=== PATIENT | female | born 1950 | race Caucasian/White ===

== ENCOUNTER → 2019-03-30 | Outpatient (CLI) | payer MEDICARE, OTHER ==
--- NOTE | 2019-03-30 10:06 | US ---
EXAMINATION TYPE: US gallbladder DATE OF EXAM: 03/30/2019 COMPARISON: NONE CLINICAL HISTORY: 69-year-old female R10.9 ABD PAIN. Intermittent RUQ pain x 1 year TECHNIQUE: Multiple sonographic images of the right upper quadrant are obtained. FINDINGS: EXAM MEASUREMENTS: Liver Length: 11.7 cm Gallbladder Wall: 0.2 cm CBD: 0.4 cm Right Kidney: 9.2 x 4.3 x 4.1 cm Pancreas: wnl Liver: wnl Gallbladder: wnl with a junctional fold noted Evidence for sonographic Ace's sign: no CBD: wnl Right Kidney: No hydronephrosis. 3.0 x 3.0 x 2.7cm exophytic cystic area inferior pole. Internal low -level echoes are demonstrated. IMPRESSION: 1. A 3.0 cm cystic lesion lower pole right kidney. Internal echoes suspected to represent artifact or debris. Six-month follow-up renal ultrasound can reassess. 2. Otherwise, no specific sonographic abnormality of the right upper quadrant.
--- NOTE | 2019-03-30 10:15 | XR ---
EXAMINATION TYPE: XR chest 2V DATE OF EXAM: 03/30/2019 COMPARISON: NONE TECHNIQUE: PA and lateral views submitted. HISTORY: Physical exam FINDINGS: The lungs are clear and there is no pneumothorax, pleural effusion, or focal pneumonia. Biapical pl eural thickening. Biapical pleural thickening. Hyperinflation suggests COPD. IMPRESSION: 1. No acute process. Correlate for COPD.
== END | disposition home or self-care (01) ==
LOC: RADUSWWP 07:19
PROVIDERS: ATTEND Family Medicine
DX: N28.1 Cyst of kidney, acquired (principal); F17.200 Nicotine dependence, unspecified, uncomplicated
CPT/HCPCS: 71046; 76705

== ENCOUNTER 2019-04-18 14:40 | Emergency (ER) | payer MEDICARE, OTHER ==
[2019-04-18 13:45] LABS: Blood Urea Nitrogen 14 mg/dL (7-17)
[2019-04-18 14:49] VITALS: TEMP 97.9
[2019-04-18] MEDS ORDERED: FAMOTIDINE 20 MG/2 ML VIAL IV STA (14:49)
[2019-04-18] MEDS ORDERED: diphenhydrAMINE 50 MG/ML 1 ML VIAL IVP STA (14:49)
[2019-04-18] MEDS ORDERED: methylPREDNISolone SOD SUCCI 125 MG/2 ML VIAL IV STA (14:49)
[2019-04-18] MEDS ORDERED: SODIUM CHLORIDE 0.9% 500 ML 500 ML IV STA (14:49)
--- NOTE | 2019-04-18 14:51 | CT ---
EXAMINATION TYPE: CT chest w con DATE OF EXAM: 04/18/2019 COMPARISON: Chest x-ray March 30, 2019 HISTORY: Abn CXR, COPD CT DLP: 394 mGycm. Automated Exposure Control for Dose Reduction was Utilized. TECHNIQUE: CT scan of the thorax is performed following with IV Contrast, patient injected with 100 mL of Isovue 300. FINDINGS: LUNGS: Moderate right greater than left biapical pleural/parenchymal scarring. No pleural effusion or pneumothorax is evident bilaterally. No suspicious consolidation. No suspicious nodules or masses MEDIASTINUM: There are no greater than 1 cm hilar or mediastinal lymph nodes. No cardiomegaly or pe ricardial effusion is seen. Ascending aorta measures up to 3.8 cm in diameter axial image 26. Descend ing aorta measures 3.2 cm in diameter same image. No significant coronary artery calcification. OTHER: Rim calcified bilateral breast implants are noted. There is 6.0 cm exophytic simple appearing cyst anteriorly upper to mid pole level left kidney. Osseous structures are demineralized. IMPRESSION: Moderate biapical pleural/parenchymal scarring, no acute pulmonary process. Mild aneurysm of thoracic aorta noted.
--- NOTE | 2019-04-18 15:25 | ED ---
General Adult HPI - General Chief complaint: Allergic Reaction Stated complaint: Chest tightness Time Seen by Provider: 04/18/19 14:44 Source: patient, RN notes reviewed, old records reviewed Mode of arrival: ambulatory Limitations: no limitations - History of Present Illness Initial comments: 69 -year-old female presenting with reaction to contrast from chest CT. Patient was brought over from computed tomography scan with complaints of mild dyspnea, chest tightness, and right hand pain and contracture after injection of iodine containing contrast. Patient has no known history of iodine ALLERGY although she has not received contrast CT in the past. Symptoms have nearly completely resolved with time my evaluation. She has some mild chest tightness associated with this. She has a history of COPD. No significant dyspnea. Hand pain and contracture is resolved. - Related Data Home Medications Medication Instructions Recorded Confirmed Calcium Carbonate [Calcium] 600 mg PO DAILY 04/18/19 04/18/19 Cyanocobalamin [Vitamin B-12] 500 mcg PO DAILY 04/18/19 04/18/19 Multivitamins, Thera [Multivitamin 1 tab PO DAILY 04/18/19 04/18/19 (formulary)] Venlafaxine HCl [Effexor] 75 mg PO BID 04/18/19 04/18/19 Allergies Allergy/AdvReac Type Severity Reaction Status Date / Time Latex, Natural Rubber Allergy Rash/Hives Verified 04/18/19 10:39 Iodinated Contrast- Oral and AdvReac Chest Pain Verified 04/18/19 16:39 IV Dye Review of Systems ROS Statement: Those systems with pertinent positive or pertinent negative responses have been documented in the HPI. ROS Other: All systems not noted in ROS Statement are negative. Past Medical History Past Medical History: COPD Additional Past Medical History / Comment(s): positive cologard History of Any Multi-Drug Resistant Organisms: None Reported Past Surgical History: Hysterectomy Additional Past Surgical History / Comment(s): growth removed from back of throat Past Anesthesia/Blood Transfusion Reactions: No Reported Reaction Past Psychological History: Anxiety, Depression Smoking Status: Current every day smoker - Past Family History Mother Family Medical History: No Reported History General Exam Limitations: no limitations General appearance: alert, in no apparent distress Head exam: Present: atraumatic, normocephalic Eye exam: Present: normal appearance, PERRL, EOMI ENT exam: Present: normal exam Neck exam: Present: normal inspection. Absent: tenderness, meningismus Respiratory exam: Present: normal lung sounds bilaterally. Absent: respiratory distress, wheezes, rales Cardiovascular Exam: Present: regular rate, normal rhythm GI/Abdominal exam: Present: soft. Absent: distended, tenderness, guarding Extremities exam: Present: normal inspection, normal capillary refill. Absent: pedal edema Back exam: Present: normal inspection, full ROM Neurological exam: Present: alert, oriented X3, CN II-XII intact. Absent: motor sensory deficit Psychiatric exam: Present: normal affect, normal mood Skin exam: Present: warm, dry, intact. Absent: cyanosis, diaphoretic Course Vital Signs 04/18/19 04/18/19 04/18/19 14:46 14:49 15:29 Temperature 97.9 F Pulse Rate 79 77 Respiratory 16 16 16 Rate Blood Pressure 142/75 144/77 O2 Sat by Pulse 99 99 Oximetry 04/18/19 16:14 Temperature Pulse Rate 57 L Respiratory 18 Rate Blood Pressure 148/78 O2 Sat by Pulse 97 Oximetry Medical Decision Making - Medical Decision Making 69 -year-old female presenting for ALLERGIC reaction to contrast dye. Patient has stable vitals, clear lungs bilaterally. She is well-appearing at the time my evaluation, symptoms have nearly resolved prior to treatment. She is given steroids, Pepcid, and Benadryl. She has normal CBC, normal electrolytes. On reevaluation she is feeling significantly better with no complaints. Iodine is added to her list of ALLERGIES. Patient had CT performed prior to arrival in the emergency department, these results are reviewed, patient has atelectasis and scarring. She has finding of 3.8 cm thoracic aneurysm. She is informed of this and will follow up with her primary care physician regarding this aneurysm - Lab Data Result diagrams: 04/18/19 15:10 04/18/19 15:10 Lab Results 04/18/19 04/18/19 04/18/19 Range/Units 13:20 15:10 15:10 WBC 8.0 (3.8-10.6) k/uL RBC 3.86 (3.80-5.40) m/uL Hgb 12.0 (11.4-16.0) gm/dL Hct 36.1 (34.0-46.0) % MCV 93.5 (80.0-100.0) fL MCH 31.1 (25.0-35.0) pg MCHC 33.2 (31.0-37.0) g/dL RDW 12.2 (11.5-15.5) % Plt Count 247 (150-450) k/uL Neutrophils % 70 % Lymphocytes % 21 % Monocytes % 5 % Eosinophils % 1 % Basophils % 0 % Neutrophils # 5.5 (1.3-7.7) k/uL Lymphocytes # 1.7 (1.0-4.8) k/uL Monocytes # 0.4 (0-1.0) k/uL Eosinophils # 0.1 (0-0.7) k/uL Basophils # 0.0 (0-0.2) k/uL Sodium 136 L (137-145) mmol/L Potassium 3.8 (3.5-5.1) mmol/L Chloride 104 (98-107) mmol/L Carbon Dioxide 24 (22-30) mmol/L Anion Gap 8 mmol/L BUN 14 13 (7-17) mg/dL Creatinine 0.67 0.66 (0.52-1.04) mg/dL Est GFR (CKD-EPI)AfAm >90 >90 (>60 ml/min/1.73 sqM) Est GFR (CKD-EPI)NonAf >90 >90 (>60 ml/min/1.73 sqM) Glucose 85 (74-99) mg/dL Calcium 9.4 (8.4-10.2) mg/dL Magnesium 2.1 (1.6-2.3) mg/dL Total Bilirubin 0.4 (0.2-1.3) mg/dL AST 22 (14-36) U/L ALT 19 (9-52) U/L Alkaline Phosphatase 91 (38-126) U/L Total Protein 6.5 (6.3-8.2) g/dL Albumin 4.1 (3.5-5.0) g/dL Disposition Clinical Impression: Adverse reaction to drug, Thoracic aortic aneurysm Disposition: HOME SELF-CARE Condition: Good Instructions (If sedation given, give patient instructions): Anaphylaxis (ED) Additional Instructions: Please follow up with her primary care physician regarding CT finding of 3.8 cm thoracic aneurysm. Is patient prescribed a controlled substance at d/c from ED?: No Referrals: Max Garcia MD [Primary Care Provider] - 1-2 days Time of Disposition: 16:49
[2019-04-18 15:27] LABS: ALT 19 U/L (9-52); AST 22 U/L (14-36); Albumin 4.1 g/dL (3.5-5.0); Alkaline Phosphatase 91 U/L (38-126); Anion Gap 8 mmol/L; Basophils % (A) 0 %; Blood Urea Nitrogen 13 mg/dL (7-17); Calcium 9.4 mg/dL (8.4-10.2); Carbon Dioxide 24 mmol/L (22-30); Chloride 104 mmol/L (98-107); Eosinophils # (A) 0.1 k/uL (0-0.7); Eosinophils % (A) 1 %; Glucose 85 mg/dL (74-99); HCT 36.1 % (34.0-46.0); Lymphocytes # (A) 1.7 k/uL (1.0-4.8); Lymphocytes % (A) 21 %; MCH 31.1 pg (25.0-35.0); MCHC 33.2 g/dL (31.0-37.0); MCV 93.5 fL (80.0-100.0); Magnesium 2.1 mg/dL (1.6-2.3); Mean Platelet Volume 7.7; Monocytes # (A) 0.4 k/uL (0-1.0); Monocytes % (A) 5 %; Neutrophils # (A) 5.5 k/uL (1.3-7.7); Neutrophils % (A) 70 %; Platelet Count 247 k/uL (150-450); Potassium 3.8 mmol/L (3.5-5.1); RBC 3.86 m/uL (3.80-5.40); RDW 12.2 % (11.5-15.5); Sodium 136 mmol/L (137-145); Total Bilirubin 0.4 mg/dL (0.2-1.3); Total Protein 6.5 g/dL (6.3-8.2)
[2019-04-18 16:15] VITALS: BP 148/78; PULSE 57; RESP 18
== END 2019-04-18 16:54 | disposition home or self-care (01) ==
LOC: EC 14:40
DX: I71.2 Thoracic aortic aneurysm, without rupture (principal); T50.8X5A Adverse effect of diagnostic agents, initial encounter; J98.11 Atelectasis; J98.4 Other disorders of lung; F41.9 Anxiety disorder, unspecified; F32.9 Major depressive disorder, single episode, unspecified; F17.200 Nicotine dependence, unspecified, uncomplicated; Z79.899 Other long term (current) drug therapy; Z91.040 Latex allergy status; Z91.048 Other nonmedicinal substance allergy status; Z91.041 Radiographic dye allergy status; Z87.09 Personal history of other diseases of the respiratory system
CPT/HCPCS: 36415 ×2; 80053; 82565; 83735; 84520; 85025; 71260; 99284; 96374; 96375 ×2; 96361; J1200; J2930; Q9967

== ENCOUNTER 2019-06-13 08:32 | Day surgery (SDC) | payer MEDICARE, OTHER ==
[2019-06-09 14:55] VITALS: BMI 21.1
[~2019-06-13 08:32] MED LIST: LACTATED RINGERS 1,000 ML IV SCH; LIDOCAINE 1% INJ 10MG/ML (20 ML MDV) ONE; PROPOFOL 10 MG/ML 20 ML VIAL IV ONE
[2019-06-13 08:54] VITALS: TEMP 97
[2019-06-13] MEDS ORDERED: LIDOCAINE 1% 20 ML VIAL (10MG/ML) FOR IV START INTRADERMA ONE (08:55)
--- NOTE | 2019-06-13 09:26 | P.GSHP ---
History of Present Illness H&P Date: 06/13/19 Chief Complaint: Screening colonoscopy This is a 69-year-old female who presents today for screening colonoscopy. Patient denies any significant GI complaints. Past Medical History Past Medical History: COPD Additional Past Medical History / Comment(s): positive cologard,thorasic aneurysm,leaking valve History of Any Multi-Drug Resistant Organisms: None Reported Past Surgical History: Hysterectomy Additional Past Surgical History / Comment(s): growth removed from back of throat Past Anesthesia/Blood Transfusion Reactions: No Reported Reaction Smoking Status: Current every day smoker - Past Family History Mother Family Medical History: No Reported History Medications and Allergies Home Medications Medication Instructions Recorded Confirmed Type Calcium Carbonate [Calcium] 600 mg PO DAILY 04/18/19 06/13/19 History Cyanocobalamin [Vitamin B-12] 500 mcg PO DAILY 04/18/19 06/13/19 History Multivitamins, Thera [Multivitamin 1 tab PO DAILY 04/18/19 06/13/19 History (formulary)] Venlafaxine HCl [Effexor] 75 mg PO BID 04/18/19 06/13/19 History Allergies Allergy/AdvReac Type Severity Reaction Status Date / Time Latex, Natural Rubber Allergy Rash/Hives Verified 06/13/19 08:43 Iodinated Contrast- Oral and AdvReac severe Verified 06/13/19 08:43 IV Dye muscle retraction and stiffness in arm of injection Surgical - Exam Vital Signs Temp Pulse Resp BP Pulse Ox 97.0 F L 103 H 18 128/86 97 06/13/19 08:53 06/13/19 08:53 06/13/19 08:53 06/13/19 08:53 06/13/19 08:53 - General well developed, well nourished, no distress - Eyes PERRL - ENT normal pinna - Neck no masses - Respiratory normal expansion - Cardiovascular Rhythm: regular - Abdomen Abdomen: soft, non tender Assessment and Plan Assessment: We'll perform screening colonoscopy.
--- NOTE | 2019-06-13 09:46 | P.OP ---
Date of Procedure: 06/13/19 Preoperative Diagnosis: Screening colonoscopy Postoperative Diagnosis: Rectal polyp Diverticulosis Procedure(s) Performed: Colonoscopy Anesthesia: MAC Surgeon: Amish Mclain Pathology: other (Rectal polyp) Condition: stable Disposition: PACU Description of Procedure: The patient's placed on the endoscopy table in the lateral position. She received IV sedation. Digital rectal exam was performed which revealed no abnormalities. The colonoscope was then placed patient anus. In the rectum there was a large peduncular polyp. This is removed with the snare. The scope was then placed into the sigmoid colon and there was extensive diverticular changes. There was a very sharp angle in the sigmoid colon. The scope could not be maneuvered around this band in the colon. This point the scope was withdrawn. There was sigmoid diverticulosis. The rectal biopsy site was examined. There is no evidence of any bleeding. The scope was withdrawn for patient. The patient will be scheduled for outpatient barium enema due to her rectal polypectomy..
[2019-06-13 10:42] VITALS: BP 118/76; PULSE 70; RESP 18
== END 2019-06-13 10:15 | disposition home or self-care (01) ==
LOC: ORWHC2ENDO 08:32
PROVIDERS: ATTEND Surgery
DX: Z12.11 Encounter for screening for malignant neoplasm of colon (principal); D12.8 Benign neoplasm of rectum; K57.30 Diverticulosis of large intestine without perforation or abscess without bleeding; J44.9 Chronic obstructive pulmonary disease, unspecified; I71.2 Thoracic aortic aneurysm, without rupture; N18.9 Chronic kidney disease, unspecified; I38 Endocarditis, valve unspecified; F17.200 Nicotine dependence, unspecified, uncomplicated; Z79.899 Other long term (current) drug therapy; Z91.041 Radiographic dye allergy status; Z91.040 Latex allergy status
CPT/HCPCS: 88305; 45385; J2001; J2704

== ENCOUNTER → 2019-08-31 | Outpatient (CLI) | payer MEDICARE, OTHER ==
[2019-08-31 12:12] VITALS: BP 146/79; PULSE 71; RESP 16; TEMP 98.1; BMI 21.8
--- NOTE | 2019-08-31 12:49 | P.GSHP ---
History of Present Illness H&P Date: 08/31/19 Chief Complaint: possible implant leak The patient is a 69 year old white female with a recent CT of the chest revealing calcified changes bilaterally around breast implants. She has not had any mammograms for many years. She had been followed with breast ultrasound in [place] in the past. She is here today because she is concerned she may have leakage of the implants and she wants to how to evaluate her breasts. She does not feel any lumps or masses in her breasts. She states that the implants feels softer than they were in the past. A silicone implants and she has had them for 38 years. She has never had a problem that she knows of with the implants. The patient in the past has not accepted a mammogram she is concerned that they will cause the implants are ruptured. Family History: no history of cancer Hormonal History: menarche: 16 breast fed: no, age at first: 27 menopause: hysterectomy at 37, no cancer, left ovaries BCP: 2 years hormones: none Past Surgical History: 1. hysterectomy 2. cyst in throat Medical History: 1. High cholesterol 2. Thoracic aneurysm 3. COPD 4.cyst on kidney 5. Poor dentition Social History: smoke: 6/day, for 47 eyrs alcohol: none drugs: none - Constitutional Constitutional: Reports sweats - EENT Eyes: denies blurred vision, denies pain Ears: deny: decreased hearing, tinnitus Ears, nose, mouth and throat: Denies headache, Denies sore throat - Breasts Breasts: bilateral: as per HPI - Cardiovascular Cardiovascular: Denies chest pain, Denies shortness of breath - Respiratory Comment: smoker, COPD - Gastrointestinal Gastrointestinal: Denies abdominal pain, Denies diarrhea, Denies nausea, Denies vomiting - Genitourinary (Female) Genitourinary: Denies dysuria, Denies hematuria - Menstruation Menstruation: Reports post hysterectomy - Musculoskeletal Comment: arthritis Musculoskeletal: Reports myalgias - Integumentary Integumentary: Reports rash, Denies pruritus - Neurological Neurological: Denies numbness, Denies weakness - Psychiatric Psychiatric: Reports anxiety, Reports depression - Endocrine Endocrine: Reports fatigue, Denies weight change - Hematologic/Lymphatic Comment: bleeds easily - Allergic/Immunologic Allergic/Immunologic: Reports seasonal allergies Past Medical History Past Medical History: COPD Additional Past Medical History / Comment(s): positive cologard,thorasic aneurysm,leaking valve History of Any Multi-Drug Resistant Organisms: None Reported Past Surgical History: Hysterectomy Additional Past Surgical History / Comment(s): growth removed from back of throat Past Anesthesia/Blood Transfusion Reactions: No Reported Reaction Past Psychological History: Anxiety, Depression Smoking Status: Current every day smoker Past Alcohol Use History: Rare Additional Past Alcohol Use History / Comment(s): 6 cigs/day since teens Past Drug Use History: None Reported - Past Family History Mother Family Medical History: No Reported History Medications and Allergies Home Medications Medication Instructions Recorded Confirmed Type Calcium Carbonate [Calcium] 600 mg PO DAILY 04/18/19 08/31/19 History Cyanocobalamin [Vitamin B-12] 500 mcg PO DAILY 04/18/19 06/13/19 History Multivitamins, Thera [Multivitamin 1 tab PO DAILY 04/18/19 08/31/19 History (formulary)] Venlafaxine HCl [Effexor] 75 mg PO BID 04/18/19 08/31/19 History Allergies Allergy/AdvReac Type Severity Reaction Status Date / Time Latex, Natural Rubber Allergy Rash/Hives Verified 08/31/19 12:14 Iodinated Contrast Media AdvReac severe Verified 08/31/19 12:14 [Iodinated Contrast- Oral muscle and IV Dye] retraction and stiffness in arm of injection Surgical - Exam Vital Signs Temp Pulse Resp BP Pulse Ox 98.1 F 71 16 146/79 98 08/31/19 12:03 08/31/19 12:03 08/31/19 12:03 08/31/19 12:03 08/31/19 12:03 BMI 21.8 - General well developed, well nourished - Eyes normal ocular movement - ENT no hearing loss, no congestion - Neck no masses, trachea midline - Respiratory normal respiratory effort, clear to auscultation - Cardiovascular Rhythm: regular Heart Sounds: normal: S1, S2 - Abdomen Abdomen: soft, non tender, no guarding, no rigid, no rebound - Integumentary rash left flank - Neurologic no disoriented, no combative - Musculoskeletal normal gait, normal posture - Psychiatric oriented to time, oriented to person, oriented to place, speech is normal, memory intact breast exam: right breast: multipositional exam breast implant in place no dominant masses or nodules of concern Right axilla: No adenopathy of concern Left breast: Multi-positional exam breast implant in place, circumareolar incision, no dominant masses or nodules of concern Left axilla: No adenopathy of concern Results Computed tomography scan and chest x-ray results reviewed Assessment and Plan Assessment: Impression: 1. Thoracic aortic aneurysm 2. Bilateral breast implants with some calcification around them 3. COPD 4. Nicotine dependence 5. Anxiety/depression 6. Hyperlipidemia 7. Fibrocystic breast changes 8. Implants believed to be silicone and patient wants to be sure there is any leakage which would result in any myalgias or arthritis 9. Patient refuses mammogram that she is afraid this will cause implants rupture Plan: 1. Recommend breast MRI to determine if there is capsular leakage 2. Medical management of medical conditions 3. Recommend stopping cigarette smoking 4. Follow up after MRI I discussed with the patient and her have 2 concerns #1 if this is a silicone breast implant and there was a leak would like to identify that a #2 is going on with the breast parenchyma. The patient again has refused a mammogram and therefore we are recommending bilateral breast MRI. Cc: Dr. Max Garcia
== END | disposition home or self-care (01) ==
LOC: WWCWWP 11:37
PROVIDERS: ATTEND Surgery
DX: Z53.9 Procedure and treatment not carried out, unspecified reason (principal)

== ENCOUNTER → 2021-09-11 | Outpatient (CLI) | payer MEDICARE, OTHER ==
--- NOTE | 2021-09-11 17:03 | BD ---
EXAMINATION TYPE: Axial Bone Density DATE OF EXAM: 09/11/2021 COMPARISON: NONE CLINICAL HISTORY: postmenopausal screening Height: 63.5 Weight: 122.7 FRAX RISK QUESTIONS: Alcohol (3 or more units per day): no Family History (Parent hip fracture): no Glucocorticoids (More than 3mos): no (Ex: prednisone, prednisolone, methylprednisolone, dexamethasone, and hydrocortisone). History of Fracture in Adulthood: no Secondary Osteoporosis: 1. Type 1 Diabetes: no 2. Hyperthyroidism: no 3. Menopause before 45: yes 4. Malnutrition: no 5. Chronic liver disease: no Rheumatoid Arthritis: no Current Tobacco Use: yes RISK FACTORS HISTORY OF: Surgery to Spine/Hip(right/left)/Wrist (right/left): no Family History of Osteoporosis: no Active: no Diet low in dairy products/other sources of calcium: no Postmenopausal woman: yes Lost more than 2 inches in height since high school: no MEDICATIONS: anti-depressant Additional History: EXAM MEASUREMENTS: Bone mineral densitometry was performed using the [employer] System. Bone mineral density as measured about the Lumbar spine is: ----- L1-L4(G/cm2): 0.681 T Score Values are as follows: ----- L2: -3.9 ----- L3: -4.1 ----- L4: -4.9 ----- L1-L4: -4.2 Bone mineral density : baseline Bone mineral density about the R hip (g/cm2): 0.679 Bone mineral density about the L hip (g/cm2): 0.612 T Score values are as follows: -----R Neck: -2.6 -----L Neck: -3.1 -----R Total: -2.8 -----L Total: -3.0 Bone mineral density : baseline IMPRESSION: Osteoporosis (T Score less than -2.5). There is increased fracture risk and therapy is usually indicated based on age. Re-Screen 1-2 years. NOTE: T-SCORE=SD OF THE YOUNG ADULT MEAN.
== END | disposition home or self-care (01) ==
LOC: RADBDWWP 07:15
PROVIDERS: ATTEND Family Medicine
DX: Z13.820 Encounter for screening for osteoporosis (principal); M81.0 Age-related osteoporosis without current pathological fracture; Z78.0 Asymptomatic menopausal state
CPT/HCPCS: 77080

== ENCOUNTER 2022-12-03 08:26 | Day surgery (SDC) | payer MEDICARE, OTHER ==
[2022-12-02 09:19] VITALS: BMI 21.6
[2022-12-03] MEDS ORDERED: LACTATED RINGERS 1,000 ML IV ONE (08:39)
[2022-12-03 08:41] VITALS: TEMP 97.6
[2022-12-03] MEDS ORDERED: LIDOCAINE 1% (10MG/ML) FOR IV START INTRADERMA PRN (08:43)
[2022-12-03] MEDS ORDERED: LACTATED RINGERS 1,000 ML IV SCH (08:43)
[2022-12-03] MEDS ORDERED: ONDANSETRON 4 MG/2 ML VIAL IVP PRN (08:43)
[2022-12-03] MEDS ORDERED: PROPOFOL 10 MG/ML 20 ML VIAL IV ONE (09:12)
[2022-12-03] MEDS ORDERED: LIDOCAINE 2% INJ 20 MG/ML (2 ML VIAL) ONE (09:12)
--- NOTE | 2022-12-03 09:18 | P.GSHP ---
History of Present Illness H&P Date: 12/03/22 Chief Complaint: History of colon polyps This a 72-year-old female presents today for colonoscopy. Patient's. History of colonpolyps. Past Medical History Past Medical History: COPD, Hyperlipidemia Additional Past Medical History / Comment(s): positive cologard,thoracic aortic aneurysm watching, cyst to kidney History of Any Multi-Drug Resistant Organisms: None Reported Past Surgical History: Hysterectomy Additional Past Surgical History / Comment(s): growth removed from back of throat Past Anesthesia/Blood Transfusion Reactions: No Reported Reaction Smoking Status: Current every day smoker - Past Family History Mother Family Medical History: No Reported History Medications and Allergies Home Medications Medication Instructions Recorded Confirmed Type Calcium Carbonate [Calcium] 600 mg PO DAILY 04/18/19 12/03/22 History Multivitamins, Thera [Multivitamin 1 tab PO DAILY 04/18/19 12/03/22 History (formulary)] Venlafaxine HCl [Effexor] 75 mg PO BID 04/18/19 12/03/22 History Atorvastatin [Lipitor] 40 mg PO DAILY 12/02/22 12/03/22 History Allergies Allergy/AdvReac Type Severity Reaction Status Date / Time Latex, Natural Rubber Allergy Rash/Hives Verified 12/03/22 08:45 Iodinated Contrast Media AdvReac severe Verified 12/03/22 08:45 [Iodinated Contrast- Oral muscle and IV Dye] retraction and stiffness in arm of injection Surgical - Exam Vital Signs Temp Pulse Resp BP Pulse Ox 97.6 F 107 H 16 113/65 95 12/03/22 08:40 12/03/22 08:40 12/03/22 08:40 12/03/22 08:40 12/03/22 08:40 - General well developed, well nourished, no distress - Eyes PERRL - ENT normal pinna - Neck no masses - Respiratory normal expansion - Abdomen Abdomen: soft, non tender Assessment and Plan Assessment: History of colon polyps. We'll perform colonoscopy.
--- NOTE | 2022-12-03 09:44 | P.OP ---
Date of Procedure: 12/03/22 Preoperative Diagnosis: History of colon polyps Postoperative Diagnosis: Diverticulosis Procedure(s) Performed: Colonoscopy Anesthesia: MAC Surgeon: Amish Mclain Pathology: none sent Condition: stable Disposition: PACU Description of Procedure: Patient's placed on the endoscopy table in the lateral position. She received IV sedation. His rectal exam was performed. This revealed no ebonized. The colonoscope was then placed patient anus passed throughout the entire colon. The scope could not be advanced into the right colon secondary to tortuous valve. Scope withdrawn. The transverse colon appeared normal. In the descending sigmoid colon there was evidence of diverticular disease. Scope was back the rectum this appeared normal. Scope withdrawn for patient.
[2022-12-03] MEDS ORDERED: ONDANSETRON 4 MG/2 ML VIAL IVP ONE (09:46)
[2022-12-03 09:58] VITALS: BP 119/78; PULSE 80; RESP 16
== END 2022-12-03 10:31 | disposition home or self-care (01) ==
LOC: ORWHC2ENDO 08:26
PROVIDERS: ATTEND Surgery
DX: Z12.11 Encounter for screening for malignant neoplasm of colon (principal); Z86.010 Personal history of colon polyps; K57.30 Diverticulosis of large intestine without perforation or abscess without bleeding; J44.9 Chronic obstructive pulmonary disease, unspecified; F17.200 Nicotine dependence, unspecified, uncomplicated; E78.5 Hyperlipidemia, unspecified; F41.9 Anxiety disorder, unspecified; F32.A Depression, unspecified; Z98.890 Other specified postprocedural states; I71.20 Thoracic aortic aneurysm, without rupture, unspecified; Z79.02 Long term (current) use of antithrombotics/antiplatelets; Z79.52 Long term (current) use of systemic steroids; Z79.811 Long term (current) use of aromatase inhibitors; Z79.899 Other long term (current) drug therapy; Z91.040 Latex allergy status; Z91.041 Radiographic dye allergy status
CPT/HCPCS: 45378; J2405; J2704; J2001